=== PATIENT | female | born 1995 | race Asian ===

== ENCOUNTER 2021-01-23 13:05 | Emergency (ER) | payer OTHER ==
[~2021-01-23] VITALS: Ht 154.9 cm; Wt 80.8 kg
[2021-01-23 14:04] LABS: BASO % 0.3 % (0.0-1.0); EOS % 0.1 % (0.0-3.0); HEMOGLOBIN 13.5 g/dl (12.0-15.5); LYMPH # 0.8 10^3/uL (1.5-5.0); LYMPH % 5.4 % (24.0-44.0); MEAN CORPUSCULAR HEMOGLOBIN 28.5 pg (27.0-33.0); MEAN CORPUSCULAR HGB CONC 32.1 g/dl (32.0-36.5); MEAN CORPUSCULAR VOLUME 88.8 fl (80.0-96.0); MONO # 0.7 10^3/uL (0.0-0.8); MONO % 4.8 % (2.0-8.0); NEUTROPHILS # 12.4 10^3/uL (1.5-8.5); PLATELET COUNT, AUTOMATED 479 10^3/uL (150-450); RED BLOOD COUNT 4.73 10^6/uL (4.00-5.40); WHITE BLOOD COUNT 13.9 10^3/uL (4.0-10.0)
[2021-01-23 14:28] LABS: ALBUMIN 3.9 GM/DL (3.2-5.2); ALT/SGPT 41 U/L (12-78); BILIRUBIN,DIRECT 0.1 MG/DL (0.0-0.2); BILIRUBIN,TOTAL 0.4 MG/DL (0.2-1.0); BLOOD UREA NITROGEN 8 MG/DL (7-18); C REACTIVE PROTEIN QUANTITATIV 9.98 MG/DL (0.00-0.30); CALCIUM LEVEL 9.6 MG/DL (8.5-10.1); CARBON DIOXIDE LEVEL 25 MEQ/L (21-32); CHLORIDE LEVEL 107 MEQ/L (98-107); CREATININE FOR GFR 0.78 MG/DL (0.55-1.30); GLOMERULAR FILTRATION RATE > 60.0 (>60); GLUCOSE, FASTING 99 MG/DL (70-100); POTASSIUM SERUM 3.8 MEQ/L (3.5-5.1); SODIUM LEVEL 138 MEQ/L (136-145); TOTAL PROTEIN 7.7 GM/DL (6.4-8.2)
[2021-01-23] MEDS ORDERED: ACETAMINOPHEN 325 MG TAB PO ONE (14:30)
[2021-01-23] MEDS ORDERED: CEPHALEXIN 500 MG CAP PO ONE (14:35)
[2021-01-23 14:44] LABS: ERYTHROCYTE SEDIMENTATION RATE 107 mm/hr (0-20)
[2021-01-23] MEDS ORDERED: NS 1,000 ML IV ONE (15:50)
[2021-01-23] MEDS ORDERED: IBUPROFEN 800 MG TAB PO ONE (15:50)
[2021-01-23 18:09] VITALS: BP 113/58
[2021-01-23] MEDS ORDERED: DICL500C PO (18:13)
== END 2021-01-23 18:41 | disposition home or self-care (01) ==
LOC: M ED 13:05
DX: N61.0 Mastitis without abscess (principal); E86.0 Dehydration; R50.9 Fever, unspecified; Z91.013 Allergy to seafood

== ENCOUNTER 2021-05-04 21:40 | Emergency (ER) | payer OTHER ==
[~2021-05-04] VITALS: Ht 154.9 cm; Wt 76.8 kg
[~2021-05-04 21:40] MED LIST: DICL500C PO
[2021-05-04 22:53] LABS: BASO % 0.4 % (0.0-1.0); EOS # 0.2 10^3/uL (0.0-0.5); EOS % 1.8 % (0.0-3.0); HEMATOCRIT 43.7 % (36.0-47.0); HEMOGLOBIN 13.5 g/dl (12.0-15.5); LYMPH # 3.1 10^3/uL (1.5-5.0); LYMPH % 30.8 % (24.0-44.0); MEAN CORPUSCULAR HEMOGLOBIN 26.3 pg (27.0-33.0); MEAN CORPUSCULAR HGB CONC 30.9 g/dl (32.0-36.5); MEAN CORPUSCULAR VOLUME 85.2 fl (80.0-96.0); MONO # 0.9 10^3/uL (0.0-0.8); MONO % 8.5 % (2.0-8.0); NEUTROPHILS # 5.9 10^3/uL (1.5-8.5); NEUTROPHILS % 58.3 % (36.0-66.0); PLATELET COUNT, AUTOMATED 403 10^3/uL (150-450); RED BLOOD COUNT 5.13 10^6/uL (4.00-5.40); WHITE BLOOD COUNT 10.2 10^3/uL (4.0-10.0)
[2021-05-04 23:13] LABS: ALBUMIN 3.8 GM/DL (3.2-5.2); ALT/SGPT 39 U/L (12-78); BILIRUBIN,DIRECT < 0.1 MG/DL (0.0-0.2); BILIRUBIN,TOTAL 0.2 MG/DL (0.2-1.0); BLOOD UREA NITROGEN 12 MG/DL (7-18); CARBON DIOXIDE LEVEL 31 MEQ/L (21-32); CHLORIDE LEVEL 105 MEQ/L (98-107); CREATININE FOR GFR 0.71 MG/DL (0.55-1.30); GLOMERULAR FILTRATION RATE > 60.0 (>60); GLUCOSE, FASTING 101 MG/DL (70-100); LIPASE 147 U/L (73-393); SODIUM LEVEL 140 MEQ/L (136-145); TOTAL PROTEIN 7.4 GM/DL (6.4-8.2)
[2021-05-04 23:20] LABS: HCG, SERUM QUALITATIVE NEGATIVE (NEGATIVE)
[2021-05-05] MEDS ORDERED: KETOROLAC 30 MG/ML 1ML VIAL IV ONE (01:55)
[2021-05-05] MEDS ORDERED: ONDANSETRON 4MG/2ML VIAL IV ONE (01:55)
[2021-05-05] MEDS ORDERED: NS 1,000 ML IV ONE (01:55)
[2021-05-05] MEDS ORDERED: GI COCKTAIL 50ML BTL(HYOSCYAMINE/MAALOX/LIDOCAINE VISCOUS)(1:3:1) PO ONE (02:10)
--- NOTE | 2021-05-05 05:49 | REPVR ---
PROCEDURE INFORMATION: Exam: US Abdomen, Limited; Right Upper Quadrant Exam date and time: 05/05/2021 3:05 AM Age: 26 years old Clinical indication: Abdominal pain; Acute; Additional info: Ruq abd pain after eating, now constant TECHNIQUE: Imaging protocol: US abdomen. Real time ultrasound with image documentation. Limited exam focused on the right upper quadrant. COMPARISON: No relevant prior studies available. FINDINGS: Limitations: Examination is somewhat limited by body habitus. Liver: The liver is normal in size and echogenicity. No focal lesions are identified. Gallbladder: The gallbladder is contracted. The gallbladder wall measures 2.8 mm in thickness. No definite gallstones are identified. Common bile duct: No biliary ductal dilation is seen. The common bile duct measures 4 mm in diameter. Pancreas: The pancreas appears normal with no ductal dilation but the visibility of the tail of the pancreas was limited. Right kidney: The right kidney is normal in size and echogenicity with no hydronephrosis or stones identified. The right kidney measures 11.6 cm in length. IMPRESSION: Contracted gallbladder which limits its assessment. No biliary ductal dilation or gallstones identified. Electronically signed by: Luh Dang On 05/05/2021 05:48:45 AM
[2021-05-05] MEDS ORDERED: LEVS0.123 PO (06:14)
[2021-05-05 06:15] VITALS: BP 122/85
== END 2021-05-05 06:46 | disposition home or self-care (01) ==
LOC: M ED 21:40
DX: K80.50 Calculus of bile duct without cholangitis or cholecystitis without obstruction (principal); Z79.899 Other long term (current) drug therapy; Z91.013 Allergy to seafood
CPT/HCPCS: 76705; 80048; 80076; 81001; 83690; 84703; 85025; 87088; 87186; 96361; 96374; 96375; 99284; J1885; J2405